=== PATIENT | male | born 1965 | race African-American/Black ===

== ENCOUNTER 2019-02-07 18:00 | Inpatient (IN) | payer OTHER ==
[2019-02-07 23:02] VITALS: BMI 28.5
--- NOTE | 2019-02-08 01:12 | HP ---
CIWA Score Nausea/Vomitin Muscle Tremors: 2 Anxiety: 3 Agitation: 3 Paroxysmal Sweats: 3 Orientation: 0-Oriented Tacttile Disturbances: 0-None Auditory Disturbances: 0-None Visual Disturbances: 0-None Headache: 3-Moderate CIWA-Ar Total Score: 17 - Admission Criteria OASAS Guidelines: Admission for Medically Managed Detox: Requires at least one of the followin. CIWA greater than 12 2. Seizures within the past 24 hours 3. Delirium tremens within the past 24 hours 4. Hallucinations within the past 24 hours 5. Acute intervention needed for co occurring medical disorder 6. Acute intervention needed for co occurring psychiatric disorder 7. Severe withdrawal that cannot be handled at a lower level of care (continued vomiting, continued diarrhea, abnormal vital signs) requiring intravenous medication and/or fluids 8. Admission ROS [facility] Chief Complaint: Alcohol withdrawal symptoms Allergies/Adverse Reactions: Allergies Allergy/AdvReac Type Severity Reaction Status Date / Time aspirin AdvReac Verified 02/07/19 22:50 ibuprofen [From Motrin] AdvReac Verified 02/07/19 22:49 History of Present Illness: 53 years old male with a long history of alcohol dependence is seeking admission to detox. Patient has been to previous detox and was in [facility] and other programs. He reports that he relapsed because he was bored. He is on disability and gets SSI and SSD. He denies suicidal ideation at this time. Patient has medical history of hypertension and asthma Exam Limitations: Physical Impairment - Ebola screening Have you traveled outside of the country in the last 21 days: No (N) Have you had contact with anyone from an Ebola affected area: No Do you have a fever: No - Review of Systems Constitutional: Malaise, Night Sweats, Changes in sleep EENT: reports: Sinus Pressure Respiratory: reports: No Symptoms reported Cardiac: reports: No Symptoms Reported GI: reports: Diarrhea, Poor Appetite, Poor Fluid Intake, Vomiting, Abdominal cramping : reports: No Symptoms Reported Musculoskeletal: reports: Back Pain Integumentary: reports: No Symptoms Reported, Dryness, Flushing Neuro: reports: Headache, Tremors Endocrine: reports: No Symptoms Reported Hematology: reports: No Symptoms Reported Psychiatric: reports: No Sypmtoms Reported, Mood/Affect Appropiate, Orientated x3 Other Systems: Reviewed and Negative Patient History - Patient Medical History Hx Anemia: No Hx Asthma: Yes Hx Chronic Obstructive Pulmonary Disease (COPD): No Hx Cancer: No Hx Cardiac Disorders: No Hx Congestive Heart Failure: No Hx Hypertension: Yes Hx Hypercholesterolemia: No HX Cerebrovascular Accident: No Hx Seizures: No Hx Dementia: No Hx Diabetes: No Hx Gastrointestinal Disorders: No Hx Liver Disease: No Hx Genitourinary Disorders: No Hx Sexually Transmitted Disorders: No Hx Renal Disease (ESRD): No Hx Thyroid Disease: No Hx Human Immunodeficiency Virus (HIV): No (Negative 2016) Hx Hepatitis C: Yes (Treated) Hx Depression: No Hx Suicide Attempt: No (Denies suicidal ideatyion) - Patient Surgical History Past Surgical History: Yes Hx Orthopedic Surgery: Yes (Left hip replacement 2013, right knee replacent 2015 ) Hx Hysterectomy: No - PPD History Previous Implant?: Yes Documented Results: Negative w/o proof Implanted On Prior [facility] Admission?: Yes PPD to be Administered?: No - Reproductive History Patient is a Female of Child Bearing Age (11 -55 yrs old): No (male) - Smoking Cessation Smoking history: Current every day smoker Have you smoked in the past 12 months: Yes Aproximately how many cigarettes per day: 5 Hx Chewing Tobacco Use: No Initiated information on smoking cessation: Yes 'Breaking Loose' booklet given: 02/08/19 - Substance & Tx. History Hx Alcohol Use: Yes Hx Substance Use: Yes Substance Use Type: Alcohol, Cocaine Hx Substance Use Treatment: Yes ([facility]) - Substances abused Alcohol Substance route: Oral Frequency: Daily Amount used: 1.5 pints of vodka/day Age of first use: 15 Date of last use: 02/07/19 Cocaine Substance route: Smoking Frequency: 3-6 times per week Amount used: $100 Age of first use: 24 Date of last use: 02/06/19 Admission Physical Exam [facility] - Vital Signs Vital Signs: Vital Signs - 24 hr 02/07/19 22:58 Temperature 97.4 F L Pulse Rate 68 Respiratory 16 Rate Blood Pressure 122/64 - Physical General Appearance: Yes: Within Normal Limits, Moderate Distress HEENTM: Yes: Hearing grossly Normal Respiratory: Yes: Lungs Clear, Normal Breath Sounds, No Respiratory Distress Neck: Yes: Supple Breast: Yes: Breast Exam Deferred Cardiology: Yes: Regular Rhythm, Regular Rate Abdominal: Yes: Within Normal Limits Genitourinary: Yes: Within Normal Limits Back: Yes: Normal Inspection Musculoskeletal: Yes: Back pain Extremities: Yes: Tremors Neurological: Yes: Within Normal Limits Integumentary: Yes: Within Normal Limits, Warm Lymphatic: Yes: Within Normal Limits - Diagnostic (1) Alcohol dependence with withdrawal, uncomplicated Current Visit: Yes Status: Acute (2) Hypertension Current Visit: Yes Status: Acute (3) Asthma Current Visit: Yes Status: Acute Qualifiers: Asthma severity: moderate Cleared for Admission [facility] - Detox or Rehab [facility] Level of Care: Medically Managed Detox Regimen/Protocol: Librium Breathalyzer - Breathalyzer Breathalyzer: 0 Inpatient Rehab Admission - Rehab Decision to Admit Inpatient rehab admission?: No
[2019-02-08] MEDS ORDERED: IBUPROFEN 400 MG TABLET (FP) PO PRN (01:27)
[2019-02-08] MEDS ORDERED: MAG HYDROX/AL HYDROX/SIMETH 30 ML UNIT-DOSE CUP PO PRN (01:27)
[2019-02-08] MEDS ORDERED: MAGNESIUM CITRATE 300 ML BOTTLE PO PRN (01:27)
[2019-02-08] MEDS ORDERED: METHOCARBAMOL 500 MG TABLET PO PRN (01:27)
[2019-02-08] MEDS ORDERED: MENTHOL/PHENOL 1 EACH UD MM PRN (01:27)
[2019-02-08] MEDS ORDERED: MAGNESIUM HYDROX 2400MG/30ML ORAL SUSPENSION 30 ML CUP PO PRN (01:27)
[2019-02-08] MEDS ORDERED: NICOTINE POLACRILEX 2 MG GUM BUC PRN (01:27)
[2019-02-08] MEDS ORDERED: hydrOXYzine PAMOATE 25 MG CAPSULE (FP) PO PRN (01:27)
[2019-02-08] MEDS ORDERED: ACETAMINOPHEN 325 MG TABLET (FP) PO PRN ×2 (01:27)
[2019-02-08] MEDS ORDERED: MELATONIN 5 MG TABLETS PO PRN (01:27)
[2019-02-08] MEDS ORDERED: BISMUTH SUBSALICYLATE 524 MG/30 ML UD PO PRN (01:27)
[2019-02-08] MEDS ORDERED: chlordiazePOXIDE HCL 10 MG CAPSULE PO PRN (01:27)
[2019-02-08] MEDS ORDERED: chlordiazePOXIDE HCL 25 MG CAPSULE PO SCH (05:00)
[2019-02-08] MEDS: PRENATAL VITAMINS W/ FOLIC ACID TABLET (FP) PO SCH (10:42)
[2019-02-08] MEDS: NICOTINE 14 MG/24 HOURS TOPICAL PATCH TD SCH (10:42)
[2019-02-08] MEDS ORDERED: LORazepam 1 MG TABLET PO PRN (11:27)
[2019-02-08] MEDS ORDERED: ALBUTEROL SO4 8 GM HFA INHALER IH PRN (11:32)
--- NOTE | 2019-02-08 11:35 | PN ---
S CIWA - CIWA Score Nausea/Vomitin-Mild Nausea/No Vomiting Muscle Tremors: 2 Anxiety: 2 Agitation: 2 Paroxysmal Sweats: No Perspiration Orientation: 0-Oriented Tacttile Disturbances: 1-Very Mild Itch/Numbness Auditory Disturbances: 0-None Visual Disturbances: 0-None Headache: 2-Mild CIWA-Ar Total Score: 10 [facility] Progress Note (SOAP) Subjective: alert,irritable,anxious,interrupted sleep,tremor Objective: 02/08/19 11:34 Vital Signs Temperature 98.4 F 02/08/19 09:32 Pulse Rate 72 02/08/19 09:32 Respiratory Rate 18 02/08/19 09:32 Blood Pressure 115/58 L 02/08/19 09:32 O2 Sat by Pulse Oximetry (%) Assessment: 02/08/19 11:34 withdrawal symptom Plan: continue detox, ativan regimen
[2019-02-08] MEDS: LORazepam 2 MG TABLET PO SCH ×2 (16:39→22:20)
[2019-02-08] MEDS: THIAMINE HCL 100 MG TABLET (FP) PO SCH (22:20)
[2019-02-09] MEDS ORDERED: chlordiazePOXIDE 5 MG CAPSULE PO SCH (05:00)
[2019-02-09] MEDS: LORazepam 2 MG TABLET PO SCH ×4 (05:56→22:12)
[2019-02-09 09:45] LABS: BILIRUBIN,TOTAL 0.2 mg/dL (0.2-1); BLOOD UREA NITROGEN 15.3 mg/dL (7-18); CALCIUM 8.6 mg/dL (8.5-10.1); CREATININE 1.3 mg/dL (0.55-1.3); HEMATOCRIT 30.4 % (35.4-49); HEMOGLOBIN 10.5 GM/dL (11.7-16.9); MCHC 34.4 g/dl (32.0-35.9); MEAN CELL VOLUME 98.6 fl (80-96); MEAN PLT VOLUME 6.8 fl (7.5-11.1); PLATELET COUNT 319 K/MM3 (134-434); POTASSIUM 4.6 mmol/L (3.5-5.1); RBC 3.08 M/mm3 (4.00-5.60); RDW 13.5 % (11.9-15.9); TOT PROT 6.2 g/dl (6.4-8.2); WHITE BLOOD COUNT 6.4 K/mm3 (4.0-10.0)
[2019-02-09] MEDS: NICOTINE 14 MG/24 HOURS TOPICAL PATCH TD SCH (10:51)
[2019-02-09] MEDS: LISINOPRIL 20 MG TABLET (FP) PO SCH (10:51)
[2019-02-09] MEDS: PRENATAL VITAMINS W/ FOLIC ACID TABLET (FP) PO SCH (10:51)
[2019-02-09] MEDS: HYDROCHLOROTHIAZIDE 25 MG TABLET (FP) PO SCH (10:51)
--- NOTE | 2019-02-09 12:06 | PN ---
[facility] CIWA - CIWA Score Nausea/Vomitin-Mild Nausea/No Vomiting Muscle Tremors: 1-None Visible, but [place] Anxiety: 2 Agitation: 2 Paroxysmal Sweats: No Perspiration Orientation: 0-Oriented Tacttile Disturbances: 1-Very Mild Itch/Numbness Auditory Disturbances: 0-None Visual Disturbances: 0-None Headache: 1-Very Mild CIWA-Ar Total Score: 8 BHS Progress Note (SOAP) Subjective: alert,irritable,anxious,interrupted sleep,pain in the body Objective: 02/09/19 12:05 Vital Signs Temperature 98.2 F 02/09/19 11:11 Pulse Rate 61 02/09/19 11:11 Respiratory Rate 16 02/09/19 11:11 Blood Pressure 154/80 02/09/19 11:11 O2 Sat by Pulse Oximetry (%) 02/09/19 12:05 Laboratory Last Values WBC 6.4 K/mm3 (4.0-10.0) 02/09/19 08:00 RBC 3.08 M/mm3 (4.00-5.60) L 02/09/19 08:00 Hgb 10.5 GM/dL (11.7-16.9) L 02/09/19 08:00 Hct 30.4 % (35.4-49) L 02/09/19 08:00 MCV 98.6 fl (80-96) H 02/09/19 08:00 MCH 34.0 pg (25.7-33.7) H 02/09/19 08:00 MCHC 34.4 g/dl (32.0-35.9) 02/09/19 08:00 RDW 13.5 % (11.9-15.9) 02/09/19 08:00 Plt Count 319 K/MM3 (134-434) 02/09/19 08:00 MPV 6.8 fl (7.5-11.1) L 02/09/19 08:00 Sodium 136 mmol/L (136-145) 02/09/19 08:00 Potassium 4.6 mmol/L (3.5-5.1) 02/09/19 08:00 Chloride 104 mmol/L (98-107) 02/09/19 08:00 Carbon Dioxide 30 mmol/L (21-32) 02/09/19 08:00 Anion Gap 2 MMOL/L (8-16) L 02/09/19 08:00 BUN 15.3 mg/dL (7-18) 02/09/19 08:00 Creatinine 1.3 mg/dL (0.55-1.3) 02/09/19 08:00 Est GFR (CKD-EPI)AfAm 71.19 02/09/19 08:00 Est GFR (CKD-EPI)NonAf 61.43 02/09/19 08:00 Random Glucose 96 mg/dL (74-106) 02/09/19 08:00 Calcium 8.6 mg/dL (8.5-10.1) 02/09/19 08:00 Total Bilirubin 0.2 mg/dL (0.2-1) 02/09/19 08:00 AST 11 U/L (15-37) L 02/09/19 08:00 ALT 12 U/L (13-61) L 02/09/19 08:00 Alkaline Phosphatase 105 U/L (45-117) 02/09/19 08:00 Total Protein 6.2 g/dl (6.4-8.2) L 02/09/19 08:00 Albumin 3.0 g/dl (3.4-5.0) L 02/09/19 08:00 Assessment: 02/09/19 12:06 withdrawal symptom Plan: continue detox ativan regime,ensure plus 120 mls po bid
--- NOTE | 2019-02-09 15:02 | EKG ---
Test Reason : Blood Pressure : / mmHG Vent. Rate : 053 BPM Atrial Rate : 053 BPM P-R Int : 198 ms QRS Dur : 092 ms QT Int : 414 ms P-R-T Axes : 017 -22 -09 degrees QTc Int : 388 ms SINUS BRADYCARDIA VOLTAGE CRITERIA FOR LEFT VENTRICULAR HYPERTROPHY ABNORMAL ECG NO PREVIOUS ECGS AVAILABLE Confirmed by BOB VALLEJO, TONNY (2013) on 02/09/2019 3:02:03 PM Referred By: Cong Tang Confirmed By:TONNY ROJAS MD
[2019-02-09] MEDS: THIAMINE HCL 100 MG TABLET (FP) PO SCH (22:12)
[2019-02-10] MEDS ORDERED: chlordiazePOXIDE HCL 10 MG CAPSULE PO PRN
[2019-02-10] MEDS ORDERED: chlordiazePOXIDE HCL 10 MG CAPSULE PO SCH (05:00)
[2019-02-10] MEDS: LORazepam 1 MG TABLET PO SCH ×4 (05:19→22:27)
[2019-02-10] MEDS: PRENATAL VITAMINS W/ FOLIC ACID TABLET (FP) PO SCH (10:30)
[2019-02-10] MEDS: HYDROCHLOROTHIAZIDE 25 MG TABLET (FP) PO SCH (10:30)
[2019-02-10] MEDS: LISINOPRIL 20 MG TABLET (FP) PO SCH (10:30)
[2019-02-10] MEDS: NICOTINE 14 MG/24 HOURS TOPICAL PATCH TD SCH (10:32)
[2019-02-10] MEDS ORDERED: ONDANSETRON *ODT* 4 MG TABLET SL PRN (10:55)
--- NOTE | 2019-02-10 10:55 | PN ---
S CIWA - CIWA Score Nausea/Vomitin-No Nausea/No Vomiting Muscle Tremors: 2 Anxiety: 1-Mildly Anxious Agitation: 1-Slight > Activity Paroxysmal Sweats: 1-Minimal Palms Moist Orientation: 0-Oriented Tacttile Disturbances: 0-None Auditory Disturbances: 0-None Visual Disturbances: 0-None Headache: 0-None Present CIWA-Ar Total Score: 5 BHS Progress Note (SOAP) Subjective: nausea sweats irritable Objective: 02/10/19 10:54 Vital Signs Temperature 97.5 F L 02/10/19 09:42 Pulse Rate 64 02/10/19 09:42 Respiratory Rate 16 02/10/19 09:42 Blood Pressure 137/63 02/10/19 09:42 O2 Sat by Pulse Oximetry (%) Laboratory Tests 02/09/19 02/09/19 02/09/19 08:00 08:00 08:00 WBC 6.4 RBC 3.08 L Hgb 10.5 L Hct 30.4 L MCV 98.6 H MCH 34.0 H MCHC 34.4 RDW 13.5 Plt Count 319 MPV 6.8 L Sodium 136 Potassium 4.6 Chloride 104 Carbon Dioxide 30 Anion Gap 2 L BUN 15.3 Creatinine 1.3 Est GFR (CKD-EPI)AfAm 71.19 Est GFR (CKD-EPI)NonAf 61.43 Random Glucose 96 Calcium 8.6 Total Bilirubin 0.2 AST 11 L ALT 12 L Alkaline Phosphatase 105 Total Protein 6.2 L Albumin 3.0 L RPR Titer Nonreactive aaox3 ambulating no acute distress Assessment: 02/10/19 10:54 withdrawals Plan: continue detox increase fluids louis parikh prn
[2019-02-10] MEDS: THIAMINE HCL 100 MG TABLET (FP) PO SCH (22:27)
[2019-02-11] MEDS ORDERED: LORazepam 0.5 MG TABLET PO PRN
[2019-02-11] MEDS ORDERED: chlordiazePOXIDE HCL 10 MG CAPSULE PO ONE (05:00)
[2019-02-11] MEDS: LORazepam 0.5 MG TABLET PO SCH ×4 (05:41→22:20)
[2019-02-11] MEDS: LISINOPRIL 20 MG TABLET (FP) PO SCH (10:23)
[2019-02-11] MEDS: PRENATAL VITAMINS W/ FOLIC ACID TABLET (FP) PO SCH (10:23)
[2019-02-11] MEDS: HYDROCHLOROTHIAZIDE 25 MG TABLET (FP) PO SCH (10:23)
[2019-02-11] MEDS: NICOTINE 14 MG/24 HOURS TOPICAL PATCH TD SCH (10:26)
[2019-02-11] MEDS ORDERED: BENZOCAINE 20 % GEL TUBE MM PRN (12:57)
--- NOTE | 2019-02-11 13:07 | PN ---
S CIWA - CIWA Score Nausea/Vomitin-No Nausea/No Vomiting Muscle Tremors: None Anxiety: 0-No Anxiety, at Ease Agitation: 0-Normal Activity Paroxysmal Sweats: No Perspiration Orientation: 0-Oriented Tacttile Disturbances: 0-None Auditory Disturbances: 0-None Visual Disturbances: 0-None Headache: 0-None Present CIWA-Ar Total Score: 0 BHS Progress Note (SOAP) Subjective: Patient denies current Withdrawal / Detox symptoms and reports that he feels well overall at this time. Objective: PATIENT A & O X 3. IN NO ACUTE DISTRESS. 02/11/19 13:04 Vital Signs Temperature 98.2 F 02/11/19 09:19 Pulse Rate 69 02/11/19 09:19 Respiratory Rate 19 02/11/19 09:19 Blood Pressure 154/73 02/11/19 09:19 O2 Sat by Pulse Oximetry (%) Laboratory Tests 02/09/19 02/09/19 02/09/19 08:00 08:00 08:00 WBC 6.4 RBC 3.08 L Hgb 10.5 L Hct 30.4 L MCV 98.6 H MCH 34.0 H MCHC 34.4 RDW 13.5 Plt Count 319 MPV 6.8 L Sodium 136 Potassium 4.6 Chloride 104 Carbon Dioxide 30 Anion Gap 2 L BUN 15.3 Creatinine 1.3 Est GFR (CKD-EPI)AfAm 71.19 Est GFR (CKD-EPI)NonAf 61.43 Random Glucose 96 Calcium 8.6 Total Bilirubin 0.2 AST 11 L ALT 12 L Alkaline Phosphatase 105 Total Protein 6.2 L Albumin 3.0 L RPR Titer Nonreactive LABS NOTED. 02/11/19 13:05 Assessment: 02/11/19 13:06 WITHDRAWAL SYMPTOMS. HYPERTENSION. 02/11/19 13:07 Plan: CONTINUE DETOX. CONTINUE TO MONITOR BLOOD PRESSURE. PATIENT SCHEDULED FOR D/C FROM DETOX UNIT TOMORROW.
[2019-02-11] MEDS: THIAMINE HCL 100 MG TABLET (FP) PO SCH (22:20)
[2019-02-12] MEDS ORDERED: LORazepam 0.5 MG TABLET PO ONE (05:00)
[2019-02-12 09:29] VITALS: BP 150/69; PULSE 72; TEMP 97.9
[2019-02-12] MEDS: HYDROCHLOROTHIAZIDE 25 MG TABLET (FP) PO SCH (10:41)
[2019-02-12] MEDS: PRENATAL VITAMINS W/ FOLIC ACID TABLET (FP) PO SCH (10:41)
[2019-02-12] MEDS: LISINOPRIL 20 MG TABLET (FP) PO SCH (10:41)
[2019-02-12] MEDS: NICOTINE 14 MG/24 HOURS TOPICAL PATCH TD SCH (10:41)
--- NOTE | 2019-02-12 17:54 | DS ---
[facility] Detox Discharge Summary Admission Date: 02/08/19 Discharge Date: 02/12/19 - History Present History: Alcohol Dependence, Cocaine Dependence Additional Comments: Patient completed detox successfully and discharged safely. Patient instructed to follow up with PCP within 1-2 weeks. Pertinent Past History: Alcohol dependence Asthma HTN Hepatitis C (treated) Nicotine dependence Cocaine dependence - Physical Exam Results Vital Signs: Vital Signs Temperature 97.9 F 02/12/19 09:28 Pulse Rate 72 02/12/19 09:28 Respiratory Rate 18 02/12/19 09:28 Blood Pressure 150/69 02/12/19 09:28 O2 Sat by Pulse Oximetry (%) - Treatment Hospital Course: Detox Protocol Followed, Detoxed Safely, Responded well, Discharged Condition Good - Medication Discharge Medications: Ambulatory Orders Lisinopril/Hydrochlorothiazide [Lisinopril-Hctz 20-25 mg Tab] 20 mg PO DAILY - Diagnosis (1) Cocaine dependence Status: Chronic (2) Hepatitis C infection Status: Chronic (3) Nicotine dependence Status: Chronic (4) Alcohol dependence with withdrawal, uncomplicated Status: Acute (5) Asthma Status: Chronic Qualifiers: Asthma severity: moderate (6) Hypertension Status: Chronic - AMA Did Patient Leave Against Medical Advice: No (Instructed to follow up with PCP within 1-2 weeks)
== END 2019-02-12 11:07 | disposition home or self-care (01) | DRG 774 ==
LOC: YASAS 18:00 → Y6N 02-08 02:26
PROVIDERS: ADMIT Allergy & Immunology; ATTEND Allergy & Immunology
PROC: HZ2ZZZZ Detoxification Services for Substance Abuse Treatment (ICD-10-PCS; principal; 2019-02-08)
DX: F10.230 Alcohol dependence with withdrawal, uncomplicated (principal); F14.20 Cocaine dependence, uncomplicated; F17.210 Nicotine dependence, cigarettes, uncomplicated; I10 Essential (primary) hypertension; J45.40 Moderate persistent asthma, uncomplicated; Z86.19 Personal history of other infectious and parasitic diseases; Z96.651 Presence of right artificial knee joint; Z96.642 Presence of left artificial hip joint; Z88.8 Allergy status to other drugs, medicaments and biological substances; Z88.6 Allergy status to analgesic agent
CPT/HCPCS: 36415; 80053; 85027; 86593; 93005; 93010